=== PATIENT | female | born 1980 | race Caucasian/White ===

== ENCOUNTER 2017-10-11 10:37 | Emergency (ER) | payer BC ==
[~2017-10-11] VITALS: Ht 157.5 cm; Wt 93.5 kg
[~2017-10-11 10:37] MED LIST: CLX20 PO; MTR600X PO; PRENTAB26 PO; RANI150T85 PO
[2017-10-11 10:52] VITALS: TEMP 37; Ht 157.5 cm; Wt 93.5 kg
[2017-10-11] MEDS ORDERED: ONDANSETRON INJ 2 MG/ML 2 ML VIAL IV STA (11:12)
[2017-10-11] MEDS ORDERED: MoRPHine SULFATE 4 MG/ML 1 ML CARP\\VIAL IV STA (11:12)
[2017-10-11] MEDS ORDERED: OPTIRAY 320 IV PRN (11:30)
[2017-10-11] MEDS ORDERED: XNX25 PO (11:39)
[2017-10-11 11:43] LABS: BASO % 0.1 %; BASO ABS # 0.01 K/uL (0-0.2); EOS % 1.1 %; HEMATOCRIT 41.9 % (37-47); HEMOGLOBIN 14.7 g/dL (12.0-16.0); IG# 0.03 K/uL (0.00-0.02); LYMPH % 18.9 %; LYMPH ABS # 1.67 K/uL (1.2-3.4); MEAN CELL VOLUME 89.5 fL (80-100); MEAN CORPUSCULAR HEMOGLOBIN 31.4 pg (25-34); MEAN CORPUSCULAR HGB CONC 35.1 g/dl (32-36); MEAN PLATELET VOLUME 9.2 fL (7.4-10.4); MONO % 6.6 %; MONO ABS # 0.58 K/uL (0.11-0.59); NEUT ABS # 6.44 K/uL (1.4-6.5); PLATELET COUNT 272 K/uL (130-400); RED CELL DISTRIBUTION WIDTH CV 12.4 % (11.5-14.5); RED CELL DISTRIBUTION WIDTH SD 40.6 fL (36.4-46.3); WHITE BLOOD COUNT 8.83 K/uL (4.8-10.8)
[2017-10-11] MEDS ORDERED: AMX875 PO (11:43)
[2017-10-11] MEDS ORDERED: HYDR-4380 PO (11:43)
[2017-10-11 11:59] LABS: CREATININE 0.64 mg/dl (0.60-1.20); POTASSIUM 3.6 mmol/L (3.5-5.1)
--- NOTE | 2017-10-11 12:53 | DIAGNOSTIC IMAGING REPORT ---
MAXILLOFACIAL CT WITH CONTRAST CLINICAL HISTORY: Multiple dental procedures; increase face swelling and pain. COMPARISON STUDY: No previous studies for comparison. TECHNIQUE: A maxillofacial CT was performed following intravenous injection of 93 cc Optiray 320 IV. Sagittal and coronal reconstructions were viewed. FINDINGS: Visualized portions of the intracranial contents are unremarkable. The mastoid air cells and middle ears are clear. The ossicles are intact. Orbits are unremarkable. The right maxillary sinus is opacified and diminutive. There is moderate polypoid mucosal thickening of the left maxillary sinus. There is mild mucosal thickening of the ethmoid and sphenoid sinuses. The right osteomeatal complex is occluded. The left is patent. Several teeth are absent. There are multiple dental amalgams. Radiodensities within the left posterior maxilla are likely iatrogenic. No acute periapical abscess is identified by CT. However, there is moderate inflammation centered on the right posterior aspect of the maxilla. There is no rim enhancing fluid collection is suggest abscess. IMPRESSION: 1. Moderate inflammation suggestive of cellulitis centered on the right posterior aspect of the maxilla. This is likely odontogenic in etiology. No abscess identified. No periapical abscess identified. Several absent teeth. 2. Diminutive opacified right maxillary sinus with occluded right ostiomeatal complex. Moderate polypoid mucosal thickening of the left maxillary sinus. No CT evidence for acute sinusitis. Electronically signed by: Stan Morales M.D. 10/11/2017 12:51 PM Dictated Date/Time: 10/11/2017 12:42 PM
[2017-10-11] MEDS ORDERED: MoRPHine SULFATE 2 MG/ML CARP IV STA (13:14)
[2017-10-11] MEDS ORDERED: CLINDAMYCIN 600 MG/54 ML D5W IV ONE (13:15)
[2017-10-11] MEDS ORDERED: CLIN300C10 PO (14:50)
[2017-10-11] MEDS ORDERED: OXYC1TAB3 PO (14:50)
[2017-10-11 15:00] VITALS: BP 120/75; PULSE 94; O2SAT 96
--- NOTE | 2017-10-12 07:38 | EMERGENCY ROOM VISIT NOTE ---
ED Visit Note First contact with patient: 10:55 CHIEF COMPLAINT: Right sided facial and dental pain. HISTORY OF PRESENT ILLNESS: Ms. Moon is a 37-year-old white female who ambulates into the complaining accompanied by her of right sided mandibular dental pain and right sided facial swelling. Historically patient reports she has had multiple dental procedures performed to the right mandible teeth since July. The most recent procedure was a pulpectomy approximately 3 days ago. Since that time she reports she is started developing facial swelling. She did contact her dentist and a prescription for amoxicillin and hydrocodone was ordered for the patient. On the second day of her illness she reports her pain and swelling became worse. She was once again seen at the dentist office and reported that when they started looking at her right mandibular teeth she had a lot of drainage; she was not told what kind of drainage. At this time once again she had an increasing pain and started developing facial swelling. Her dentist has had her double up on her antibiotic dose but she continues to have increasing pain and swelling. Currently she is complaining of a severe pressure and throbbing sensation over the right side of the face from just inferior to the eye extending inferiorly to the right anterior neck. She rates this discomfort 7/10. Her pain worsens with palpation, opening her mouth and chewing. She has not identified any alleviating factors related to the pain. She has been taking her prescribed hydrocodone without relief of her discomfort. Associated with her pain she reports she has a decreased appetite, she has been having intermittent chills but no arron fevers and has been intermittently nauseated but has not vomited. Additionally today she reports she has noted increasing swelling of the right side of the face and now the external skin is red and warm to the touch. She denies any recent trauma except for her dental procedures, other skin eruptions, the skin color changes, headache, dizziness, lightheadedness, upper respiratory tract symptoms, difficulty swallowing, sensations of throat swelling , drooling, painful talking, cough, shortness of breath, chest pain. REVIEW OF SYSTEMS: As noted above in History of Present Illness. 8 body systems were reviewed with this patient and found to be negative unless noted above otherwise. PMH: As previously noted, unspecified right ankle surgery, section 2.. CURRENT MEDICATION: Medications Dose Route/Sig Max Daily Dose Days Date Category Dose Instructions Hydrocodone/Acetaminophen (HydrocodoneAcetaminophen) 1 Tab Tab 1 Tab PO Q4H PRN 10/11/17 Reported HYDROCODONE-ACETAMINOPHEN 5-300MG Amoxicillin 875 Mg Tab 875 Mg PO BID 10/11/17 Reported Alprazolam 0.25 Mg Tab 1 Tab PO DAILY PRN 10/11/17 Reported Ibuprofen 600 Mg Tab 600 Mg PO Q4H PRN 03/08/15 Rx Celexa * (Citalopram Hydrobromide) 40 Mg Tab 40 Mg PO DAILY 12/19/10 Reported . ALLERGIES TO MEDICATION: Keflex. SOCIAL HISTORY: Patient is currently employed; she feels safe in her home environment; she denies tobacco and alcohol use. PHYSICAL EXAM: Vital Signs: Date Time Temp Pulse Resp B/P (MAP) Pulse Ox O2 Delivery O2 Flow Rate FiO2 10/11/17 15:00 94 16 120/75 96 Room Air 10/11/17 12:45 85 18 155/88 95 Room Air 10/11/17 10:52 37.0 115 18 135/95 96 Room Air General: 37 year-old white female in moderate distress due to pain and swelling , nontoxic appearing, afebrile and hemodynamically stable. Neurological: Awake, alert and oriented to person, place and time. Answering questions appropriately and following commands. Normal gait. Skin: Warm, dry and pink. The right side of the patient's face is swollen and erythematous and warm to the touch. The external skin does not appear cellulitic. I do not appreciate any open soft tissue injury/wounds to this area. HEENT: Atraumatic and normocephalic. Oral cavity is moist and pink. Airway is patent. Moderate swelling over the right mandibula gingiva. I was not able to palpate any specific abscesses. I was not able to express any fluid from her swelling area. Her speech was normal and clear. Did not appreciate any drooling. No cervical or submandibular lymphadenopathy. Chest: Lung sounds clear to auscultation and equal bilaterally with symmetrical chest wall movements. Abdomen: Soft and nontender. Positive bowel sounds in all quadrants. ED COURSE: Patient is assessed as noted above. Patient's medication list was reviewed. Laboratory Testing: Test 10/11/17 11:29 Range/Units White Blood Count 8.83 4.8-10.8 K/uL Red Blood Count 4.68 4.2-5.4 M/uL Hemoglobin 14.7 12.0-16.0 g/dL Hematocrit 41.9 37-47 % Mean Corpuscular Volume 89.5 80-100 fL Mean Corpuscular Hemoglobin 31.4 25-34 pg Mean Corpuscular Hemoglobin Concent 35.1 32-36 g/dl Platelet Count 272 130-400 K/uL Mean Platelet Volume 9.2 7.4-10.4 fL Neutrophils (%) (Auto) 73.0 % Lymphocytes (%) (Auto) 18.9 % Monocytes (%) (Auto) 6.6 % Eosinophils (%) (Auto) 1.1 % Basophils (%) (Auto) 0.1 % Neutrophils # (Auto) 6.44 1.4-6.5 K/uL Lymphocytes # (Auto) 1.67 1.2-3.4 K/uL Monocytes # (Auto) 0.58 0.11-0.59 K/uL Eosinophils # (Auto) 0.10 0-0.5 K/uL Basophils # (Auto) 0.01 0-0.2 K/uL RDW Standard Deviation 40.6 36.4-46.3 fL RDW Coefficient of Variation 12.4 11.5-14.5 % Immature Granulocyte % (Auto) 0.3 % Immature Granulocyte # (Auto) 0.03 0.00-0.02 K/uL Sodium Level 137 136-145 mmol/L Potassium Level 3.6 3.5-5.1 mmol/L Chloride Level 103 98-107 mmol/L Carbon Dioxide Level 30 21-32 mmol/L Anion Gap 5.0 3-11 mmol/L Blood Urea Nitrogen 5 7-18 mg/dl Creatinine 0.64 0.60-1.20 mg/dl Est Creatinine Clear Calc Drug Dose 128.2 ml/min Estimated GFR () 132.1 Estimated GFR (Non- 114.0 BUN/Creatinine Ratio 7.2 10-20 Random Glucose 90 70-99 mg/dl Calcium Level 9.0 8.5-10.1 mg/dl Facial CT with contrast: Was reviewed by myself and read by the radiologist showing moderate inflammation suggestive of cellulitis centered over the right posterior aspect of the maxilla likely caused by odontogenic etiology. No abscess identified. Also was noted diminutive opacity of the right maxillary sinus with occlusion of the right ostiomeatal complex. Moderate poly-polypoid mucosal thickening of the left maxillary sinuses without evidence of acute sinusitis. Patient was hydrated with normal saline and she was received a total of 6 mg of morphine IV for pain, 4 mg of Zofran IV and 600 mg of clindamycin IV for her symptoms. Patient was reassessed multiple times during her stay in the emergency department. Patient's case was reviewed with Dr. Garza; we agreed on diagnostic approach, treatment, disposition and plan. Patient is educated about his findings and instructed on her treatment plan; she verbalizes understanding and agreement with this plan. CLINIC IMPRESSION: Facial cellulitis. Dental pain. DISPOSITION: Patient discharged home in stable condition; prior to departure she was reassessed and subjectively reported she was feeling the same. PLAN: Patient's hydrocodone prescription was replaced with a sliding pain scale of ibuprofen, acetaminophen and OxyIR; her name was checked in the state database and no red flags were noted and she was given appropriate narcotic precautions. Patient's amoxicillin prescription was replaced with gentamicin 300 mg 4 times a day for 10 days. Patient was encouraged to use ice on the areas of pain and swelling 5-6 times a day for 20-30 minutes. Patient was encouraged to use a liquid/mechanical soft diet at room temperature for the next few days. Patient is encouraged to keep her mouth clean with brushing, flossing and gargling. Patient did request information on possible following up with a different provider and I did encourage her to follow-up with Dr. Houser of general surgery who is contact lens fitter. Patient was encouraged to return to the ED in 36-48 hours for recheck or sooner for worsening swelling, worsening redness, fevers, vomiting or any new/ concerning symptoms.
== END 2017-10-11 15:15 | disposition home or self-care (01) ==
LOC: C.EDB 10:38 → C.EDD 15:15
DX: L03.211 Cellulitis of face (principal); K08.89 Other specified disorders of teeth and supporting structures; Z98.818 Other dental procedure status; Z88.1 Allergy status to other antibiotic agents